=== PATIENT | female | born 1960 | race American Indian/Alaskan Native ===

== ENCOUNTER 2016-11-29 22:20 | Emergency (ER) | payer BC ==
[2016-11-29] MEDS ORDERED: PEPCID IV ONE ×2 (22:52→22:58)
[2016-11-29] MEDS ORDERED: BENADRYL ONE (22:53)
[2016-11-29] MEDS ORDERED: BENADRYL IV ONE (22:58)
--- NOTE | 2016-11-29 22:58 | Emergency Department Report ---
HPI - General Chief Complaint: Allergic Reaction Time Seen by Provider: 11/29/16 22:45 - HPI HPI: 56-year-old female with a past history hypertension presents to the hospital complains of allergic reaction. Patient developed upper lip swelling at 7 PM that has progressively worsened. She denies any breathing difficulty, wheezing , throat tightness, or tongue swelling. Patient has been on lisinopril for several years. Dose was last increased in September. Yesterday patient was started on albuterol, Augmentin, Tessalon Perles for respiratory infection. No reports of skin rash or pruritus. No pain or aggravating or alleviating factors reported. Last dose of lisinopril was early this a.m. ED Past Medical Hx - Past Medical History Previous Medical History?: Yes Hx Hypertension: Yes Additional medical history: sinusitis - Surgical History Past Surgical History?: No - Social History Smoking Status: Never Smoker Substance Use Type: Alcohol, Non Opiate Pain, Prescribed - Medications Home Medications: Home Medications Medication Instructions Recorded Confirmed Last Taken Type Amoxicillin/K Clav Tab [Augmentin 1 tab PO Q12H 11/29/16 11/29/16 11/29/16 History 875MG TAB] Benzonatate [Tessalon Perles] 100 mg PO Q8HR 11/29/16 11/29/16 11/29/16 History Esomeprazole Magnesium [Nexium 20 mg PO DAILY 11/29/16 11/29/16 Unknown History 24Hr] Hydrochlorothiazide [HCTZ] 25 mg PO DAILY 11/29/16 11/29/16 11/29/16 History Lisinopril [Zestril] 40 mg PO DAILY 11/29/16 11/29/16 11/29/16 History Multivitamin Tab 1 tab PO DAILY 11/29/16 11/29/16 11/29/16 History Naproxen [Naprosyn] 500 mg PO BID 11/29/16 11/29/16 11/29/16 History Ranitidine HCl [Zantac 300 MG TAB] 300 mg PO DAILY 11/29/16 11/29/16 Unknown History Famotidine [Pepcid] 20 mg PO BID #10 tablet 11/30/16 Unknown Rx Prednisone [predniSONE 10 mg 10 mg PO .TAPER #1 tab.ds.pk 11/30/16 Unknown Rx (6-Day Pack, 21 Tabs)] amLODIPine [Norvasc] 10 mg PO DAILY #30 tab 11/30/16 Unknown Rx diphenhydrAMINE [Benadryl CAP] 25 mg PO Q6HR PRN #30 capsule 11/30/16 Unknown Rx ED Review of Systems ROS: Stated complaint: ALLERGIC REACTION Other details as noted in HPI Comment: All other systems reviewed and negative Other: Constitutional: No fevers chills Eyes: No eye pain visual changes ENT: As per HPI Neck: Denies pain Respiratory: Denies cough wheezing shortness of breath Cardiovascular: Denies chest pain, palpitations, syncope GI: Denies abdominal pain, nausea, vomiting, diarrhea : Denies dysuria, urinary frequency, or urgency Musculoskeletal: Denies back pain, joint swelling Skin: Denies rash, lesions, erythema Neurologic: Denies headache, numbness, weakness Psychiatric: Denies suicidal ideation, hallucinations Physical Exam - Physical Exam Vital Signs: Vital Signs 11/29/16 22:33 Temperature 97.6 F Pulse Rate 87 Respiratory 18 Rate Blood Pressure 177/121 O2 Sat by Pulse 99 Oximetry Physical Exam: General: No limitations, patient is alert in no acute distress Head exam: Atraumatic, normocephalic Eyes exam: Normal appearance, pupils equal reactive to light, extraocular movements intact ENT: Moist mucous membrane, normal oropharynx, diffuse upper lip swelling Neck exam: Normal inspection, full range of motion, no meningismus nontender Respiratory exam: Clear to auscultation bilateral, no wheezes, rales, crackles Cardiovascular: Normal rate and rhythm, normal heart sounds Abdomen: Soft, nondistended, and nontender, with normal bowel sounds, no rebound, or guarding Extremity: Full range of motion normal inspection no deformity Back: Normal Inspection, full range of motion, no tenderness Neurologic: Alert, oriented x3, cranial nerves intact, no motor or sensory deficit Psychiatric: normal affect, normal mood Skin: Warm, dry, intact no rash ED Course Vital Signs 11/29/16 22:33 Temperature 97.6 F Pulse Rate 87 Respiratory 18 Rate Blood Pressure 177/121 O2 Sat by Pulse 99 Oximetry - Reevaluation(s) Reevaluation #1: 11/29/16 23:26 Patient was medicated with Benadryl, Solu-Medrol, and Pepcid in the ED ED Medical Decision Making - Lab Data Result diagrams: 11/29/16 23:07 11/29/16 23:07 Lab Results 11/29/16 11/29/16 Range/Units 23:07 23:07 WBC 8.6 (4.5-11.0) K/mm3 RBC 4.55 (3.65-5.03) M/mm3 Hgb 11.4 (10.1-14.3) gm/dl Hct 34.4 (30.3-42.9) % MCV 76 L (79-97) fl MCH 25 L (28-32) pg MCHC 33 (30-34) % RDW 18.8 H (13.2-15.2) % Plt Count 229 (140-440) K/mm3 Sodium 134 L (137-145) mmol/L Potassium 3.7 (3.6-5.0) mmol/L Chloride 92.7 L (98-107) mmol/L Carbon Dioxide 29 (22-30) mmol/L Anion Gap 16 mmol/L BUN 15 (7-17) mg/dL Creatinine 1.0 (0.7-1.2) mg/dL Estimated GFR > 60 ml/min BUN/Creatinine Ratio 15.00 % Glucose 127 H (65-100) mg/dL Calcium 9.5 (8.4-10.2) mg/dL - Medical Decision Making Patient was observed for 6 hours and upper lip remains swollen with mild improvement. No worsening in swelling and no airway swelling or difficulty breathing reported. Patient will be discharged since she has isolated upper lip swelling with no airway issues. Instructed to discontinue lisinopril. Will be started on Norvasc 10 mg and encouraged to follow with PMD - Differential Diagnosis angioedema lisinopril induced, allergic reaction Critical Care Time: No Critical care attestation.: If time is entered above; I have spent that time in minutes in the direct care of this critically ill patient, excluding procedure time. ED Disposition Clinical Impression: DOMINIQUE inhibitor-aggravated angioedema Qualifiers: Encounter type: initial encounter HTN (hypertension) Qualifiers: Hypertension type: essential hypertension Qualified Code(s): I10 - Essential ( primary) hypertension Disposition: DISCHARGED TO HOME OR SELFCARE Is pt being admited?: No Does the pt Need Aspirin: No Condition: Stable Instructions: Hypertension (ED), Angioedema (ED) Additional Instructions: Stop lisinopril and previous report this as an allergy in the future. I started Norvasc 10 mg daily for high blood pressure. He had been prescribed medications for allergic reaction. Please return if symptoms worsen including progression of swelling to other parts of your face or mouth, tongue swelling, throat swelling, or shortness of breath. Follow with your doctor within 2 days. Prescriptions: Famotidine [Pepcid] 20 mg PO BID #10 tablet Prednisone [predniSONE 10 mg (6-Day Pack, 21 Tabs)] 10 mg PO .TAPER #1 tab.ds.pk amLODIPine [Norvasc] 10 mg PO DAILY #30 tab diphenhydrAMINE [Benadryl CAP] 25 mg PO Q6HR PRN #30 capsule PRN Reason: Allergic Reaction Referrals: PRIMARY CARE, [Primary Care Provider] - 2-3 Days Forms: Work/School Release Form(ED) Time of Disposition: 04:44
[2016-11-29 23:31] LABS: Hematocrit 34.4 % (30.3-42.9); Hemoglobin 11.4 gm/dl (10.1-14.3); Mean Corpuscular HGB Conc 33 % (30-34); Mean Corpuscular Volume 76 fl (79-97); Platelet Count 229 K/mm3 (140-440); Red Blood Count 4.55 M/mm3 (3.65-5.03); Red Cell Distribution Width 18.8 % (13.2-15.2); White Blood Count 8.6 K/mm3 (4.5-11.0)
[2016-11-29 23:36] LABS: Mean Corpuscular Hemoglobin 25 pg (28-32)
[2016-11-29 23:47] LABS: Blood Urea Nitrogen 15 mg/dL (7-17); Calcium 9.5 mg/dL (8.4-10.2); Carbon Dioxide 29 mmol/L (22-30); Chloride 92.7 mmol/L (98-107); Glucose 127 mg/dL (65-100); Potassium 3.7 mmol/L (3.6-5.0); Sodium 134 mmol/L (137-145)
[2016-11-29 23:48] LABS: Anion Gap 16 mmol/L
[2016-11-30] MEDS ORDERED: TORADOL IV ONE ×2 (03:32→03:33)
[2016-11-30 05:03] VITALS: BP 132/76
== END 2016-11-30 05:02 | disposition home or self-care (01) ==
LOC: ED 22:20
DX: T78.3XXA Angioneurotic edema, initial encounter (principal); I10 Essential (primary) hypertension
CPT/HCPCS: 36415; 80048; 85027; 96374; 96375; 99283; J1200; J1885; J2930

== ENCOUNTER 2018-06-14 07:15 | Emergency (ER) | payer BC ==
[2018-06-14] MEDS ORDERED: CATAPRES ONE (07:38)
[2018-06-14] MEDS ORDERED: CATAPRES PO ONE (07:40)
[2018-06-14] MEDS ORDERED: BENADRYL IV ONE (08:47)
[2018-06-14] MEDS ORDERED: NACL 0.9% 1000 ML 1,000 ML IV ONE (08:47)
[2018-06-14] MEDS ORDERED: DECADRON IV ONE (08:47)
[2018-06-14] MEDS ORDERED: PEPCID IV ONE (08:47)
--- NOTE | 2018-06-14 08:52 | Emergency Department Report ---
ED Allergic Reaction HPI - General Chief complaint: Allergic Reaction Stated complaint: EXTREME ITCHING/SWOLLEN LYMPNOGS Time Seen by Provider: 06/14/18 08:25 Source: patient Mode of arrival: Ambulatory Limitations: No Limitations - History of Present Illness Initial Comments: This is a 58-year-old female nontoxic, well nourished in appearance, no acute signs of distress presents to the ED with c/o of with itching and rash that started today. Patient states she took Norsac last night and started to get this symptoms. Patient stated that she also took Norvasc last year and developed similar symptoims and ankle swelling so she stopped. Patient states it is itching and redness. Patient denies any drooling, hoarseness or facial swelling. Patient denies any trauma. She denies any fever, chills, nausea, vomiting, chest pain, shortness of breath, headache, stiff neck, numbness or tingling. Patient states allergies to Lisinopril. Past medical history includes HTN. MD Complaint: allergic reaction -: days(s) (1) Exposure: medication Symptoms: rash, itching. denies: facial swelling, lip swelling, difficulty swallowing, difficulty breathing, orolingual swelling, hoarseness, syncopy, dizziness, nausea, vomiting, abdominal pain Severity: mild Treatment Prior to Arrival: none Previous Allergy History: none - Related Data Home Medications Medication Instructions Recorded Confirmed Last Taken Amoxicillin/K Clav Tab [Augmentin 1 tab PO Q12H 11/29/16 11/29/16 11/29/16 875MG TAB] Benzonatate [Tessalon Perles] 100 mg PO Q8HR 11/29/16 11/29/16 11/29/16 Esomeprazole Magnesium [Nexium 20 mg PO DAILY 11/29/16 11/29/16 Unknown 24Hr] Hydrochlorothiazide [HCTZ] 25 mg PO DAILY 11/29/16 11/29/16 11/29/16 Lisinopril [Zestril] 40 mg PO DAILY 11/29/16 11/29/16 11/29/16 Multivitamin Tab 1 tab PO DAILY 11/29/16 11/29/16 11/29/16 Naproxen [Naprosyn] 500 mg PO BID 11/29/16 11/29/16 11/29/16 Ranitidine HCl [Zantac 300 MG TAB] 300 mg PO DAILY 11/29/16 11/29/16 Unknown Previous Rx's Medication Instructions Recorded Last Taken Type Famotidine [Pepcid] 20 mg PO BID #10 tablet 11/30/16 Unknown Rx Prednisone [predniSONE 10 mg 10 mg PO .TAPER #1 tab.ds.pk 11/30/16 Unknown Rx (6-Day Pack, 21 Tabs)] amLODIPine [Norvasc] 10 mg PO DAILY #30 tab 11/30/16 Unknown Rx diphenhydrAMINE [Benadryl CAP] 25 mg PO Q6HR PRN #30 capsule 11/30/16 Unknown Rx Hydrochlorothiazide [HCTZ] 25 mg PO QDAY #30 tablet 06/14/18 Unknown Rx Metoprolol [Lopressor TAB] 25 mg PO DAILY #30 tablet 06/14/18 Unknown Rx Allergies Allergy/AdvReac Type Severity Reaction Status Date / Time lisinopril Allergy Angioedema Verified 11/29/16 22:54 ED Review of Systems ROS: Stated complaint: EXTREME ITCHING/SWOLLEN LYMPNOGS Other details as noted in HPI Constitutional: denies: chills, fever Eyes: denies: eye pain, eye discharge, vision change ENT: denies: ear pain, throat pain Respiratory: denies: cough, shortness of breath, wheezing Cardiovascular: denies: chest pain, palpitations Endocrine: no symptoms reported Gastrointestinal: denies: abdominal pain, nausea, diarrhea Genitourinary: denies: urgency, dysuria, discharge Musculoskeletal: denies: back pain, joint swelling, arthralgia Skin: rash. denies: lesions Neurological: denies: headache, weakness, paresthesias Psychiatric: denies: anxiety, depression Hematological/Lymphatic: denies: easy bleeding, easy bruising ED Past Medical Hx - Past Medical History Hx Hypertension: Yes Additional medical history: sinusitis - Social History Smoking Status: Never Smoker Substance Use Type: None - Medications Home Medications: Home Medications Medication Instructions Recorded Confirmed Last Taken Type Amoxicillin/K Clav Tab [Augmentin 1 tab PO Q12H 11/29/16 11/29/16 11/29/16 History 875MG TAB] Benzonatate [Tessalon Perles] 100 mg PO Q8HR 11/29/16 11/29/16 11/29/16 History Esomeprazole Magnesium [Nexium 20 mg PO DAILY 11/29/16 11/29/16 Unknown History 24Hr] Hydrochlorothiazide [HCTZ] 25 mg PO DAILY 11/29/16 11/29/16 11/29/16 History Lisinopril [Zestril] 40 mg PO DAILY 11/29/16 11/29/16 11/29/16 History Multivitamin Tab 1 tab PO DAILY 11/29/16 11/29/16 11/29/16 History Naproxen [Naprosyn] 500 mg PO BID 11/29/16 11/29/16 11/29/16 History Ranitidine HCl [Zantac 300 MG TAB] 300 mg PO DAILY 11/29/16 11/29/16 Unknown History Famotidine [Pepcid] 20 mg PO BID #10 tablet 11/30/16 Unknown Rx Prednisone [predniSONE 10 mg 10 mg PO .TAPER #1 tab.ds.pk 11/30/16 Unknown Rx (6-Day Pack, 21 Tabs)] amLODIPine [Norvasc] 10 mg PO DAILY #30 tab 11/30/16 Unknown Rx diphenhydrAMINE [Benadryl CAP] 25 mg PO Q6HR PRN #30 capsule 11/30/16 Unknown Rx Hydrochlorothiazide [HCTZ] 25 mg PO QDAY #30 tablet 06/14/18 Unknown Rx Metoprolol [Lopressor TAB] 25 mg PO DAILY #30 tablet 06/14/18 Unknown Rx ED Physical Exam - General Limitations: No Limitations General appearance: alert, in no apparent distress - Head Head exam: Present: atraumatic, normocephalic - Eye Eye exam: Present: normal appearance Pupils: Present: normal accommodation - ENT ENT exam: Present: normal exam, normal orophraynx, mucous membranes moist, TM's normal bilaterally, normal external ear exam, other (No angioedema. No facial swelling. Uvula midline.) - Neck Neck exam: Present: normal inspection, full ROM. Absent: tenderness, meningismus, lymphadenopathy - Respiratory Respiratory exam: Present: normal lung sounds bilaterally. Absent: respiratory distress, wheezes, rales, rhonchi, stridor, chest wall tenderness, accessory muscle use, decreased breath sounds, prolonged expiratory - Cardiovascular Cardiovascular Exam: Present: regular rate, normal rhythm, normal heart sounds. Absent: bradycardia, tachycardia, irregular rhythm, systolic murmur, diastolic murmur, rubs, gallop - GI/Abdominal GI/Abdominal exam: Present: soft, normal bowel sounds. Absent: distended, tenderness, guarding, rebound, rigid, diminished bowel sounds - Extremities Exam Extremities exam: Present: normal inspection, full ROM, normal capillary refill. Absent: tenderness - Back Exam Back exam: Present: normal inspection, full ROM - Neurological Exam Neurological exam: Present: alert, oriented X3, normal gait - Psychiatric Psychiatric exam: Present: normal affect, normal mood - Skin Skin exam: Present: warm, dry, intact, normal color, rash, urticaria ED Course Vital Signs 06/14/18 06/14/18 07:30 08:25 Pulse Rate 107 H 89 Respiratory 16 16 Rate Blood Pressure 222/99 Blood Pressure 147/86 [Right] O2 Sat by Pulse 99 98 Oximetry - Reevaluation(s) Reevaluation #1: 06/14/18 08:53 Patient is speaking in full sentences with no signs of distress noted. ED Medical Decision Making - Medical Decision Making This is a 58-year-old female that presents with allergic reaction. Patient is stable was examined by me. There is no facial swelling. No angioedema. There is no cellulitis. No hoarseness. Patient received 1 L normal saline, Benadryl , Decadron, and Pepcid in the ED IV. Patient also received Catapress. Blood pressure decreased prior to discharge. Patient stated she takes metoprolol and HCTZ 25 mg daily and has been out for the past month. Patient had a refill of this medication. Patient was instructed not to operate any machinery after discharge due to possible drowsiness of Benadryl. Patient stated that a family member will drive patient home after discharge. Patient is discharged with prednisone and Benadryl. Patient was referred to Follow-up with a primary care doctor in 3-5 days or if symptoms worsen and continue return to emergency room as soon as possible. At time of discharge, the patient does not seem toxic or ill in appearance. No acute signs of distress noted. Patient agrees to discharge treatment plan of care. No further questions noted by the patient. Critical care attestation.: If time is entered above; I have spent that time in minutes in the direct care of this critically ill patient, excluding procedure time. ED Disposition Clinical Impression: HTN (hypertension) Qualifiers: Hypertension type: unspecified Qualified Code(s): I10 - Essential (primary) hypertension Allergic reaction Qualifiers: Encounter type: initial encounter Qualified Code(s): T78.40XA - Allergy, unspecified, initial encounter Disposition: TO HOME OR SELFCARE Is pt being admited?: No Does the pt Need Aspirin: No Condition: Stable Instructions: Hypertension (ED), Urticaria (ED) Additional Instructions: Follow-up with a primary care doctor in 3-5 days or if symptoms worsen and continue return to emergency room as soon as possible. Take your blood pressure daily and present it to your primary care doctor. You may have developed allergic reaction to Norvasc, so avoid taking this until cleared by your primary care doctor. Prescriptions: Hydrochlorothiazide [HCTZ] 25 mg PO QDAY #30 tablet Metoprolol [Lopressor TAB] 25 mg PO DAILY #30 tablet Referrals: PRIMARY CAREMD [Primary Care Provider] - 3-5 Days SUYAPA LIVINGSTON MD [Staff Physician] - 3-5 Days [facility] [Outside] - 3-5 Days [facility] [Outside] - 3-5 Days Forms: Work/School Release Form(ED)
[2018-06-14 09:29] VITALS: BP 139/86
== END 2018-06-14 10:30 | disposition home or self-care (01) ==
LOC: ED 07:15
DX: T78.40XA Allergy, unspecified, initial encounter (principal); I10 Essential (primary) hypertension; Z88.8 Allergy status to other drugs, medicaments and biological substances
CPT/HCPCS: 96374; 96375; 99282; J1100; J1200; J7030

== ENCOUNTER 2019-08-29 07:55 | Outpatient (CLI) | payer BC ==
--- NOTE | 2019-08-29 13:30 | Mammography Report ---
DIGITAL SCREENING MAMMOGRAM WITH CAD, 08/29/2019 INDICATION: Routine screening mammography. TECHNIQUE: Digital bilateral 2D mammography was obtained in the craniocaudal and mediolateral obliq ue projections. This examination was interpreted with the benefit of Computer-Aided Detection analysi s. COMPARISON: 07/13/2015 FINDINGS: Breast Density: There are scattered areas of fibroglandular density. There is no evidence of dominant mass, suspicious calcifications or architectural distortion in eithe r breast. IMPRESSION: No mammographic evidence of malignancy. Follow up recommendation: Routine yearly BI-RADS Category 1: Negative. A "normal" or negative report should not discourage follow up or biopsy of a clinically significant f inding. A written summary of these findings will be mailed to the patient. The patient will be entered into a mammography reporting system which will generate a reminder letter for the patient's next appointmen t at the appropriate interval. The [employer] recommends yearly mammograms starting at age 40 and continuing as l jeannie as a woman is in good health. Breast MRI is recommended for women with an approximate 20-25% or greater lifetime risk of breast cancer, including women with a strong family history of breast or ova mitra cancer or who have been treated for Hodgkin's disease. Signer Name: Laz Barrett MD Signed: 08/29/2019 1:26 PM Workstation Name: [id number]
== END 2019-08-29 07:56 | disposition home or self-care (01) ==
LOC: MAMMO 07:55
PROVIDERS: ATTEND Physician Assistant
DX: Z12.31 Encounter for screening mammogram for malignant neoplasm of breast (principal)
CPT/HCPCS: 77067